=== PATIENT | male | born 1970 | race Caucasian/White ===

== ENCOUNTER 2018-08-15 20:50 | Observation (INO) | payer OTHER, SELFPAY ==
[2018-08-15 20:57] VITALS: BP 195/92; PULSE 74; RESP 22; TEMP 36.6; O2SAT 99
--- NOTE | 2018-08-15 21:09 | ED.CHESTPAIN ---
HPI - Chest Pain General Chief Complaint: Chest Pain Stated Complaint: POSSIBLE FB IN ESOPHAGUS Time Seen by Provider: 08/15/18 20:59 Source: patient and family Mode of arrival: ambulatory Limitations: no limitations History of Present Illness HPI narrative: 48-year-old male nonsmoker otherwise healthy presents with his friend and the chief complaint of a large chunk of steak stuck in his throat. He was eating a ribeye steak at 1430 this afternoon and has felt like it has been stuck ever since. He has had multiple episodes of vomiting. He denies chest pain shortness of breath or fever or chills. He states this has never happened before. He denies any sharp or metallic foreign body Onset (ago): hour(s) Duration: constant Pain location: epigastric Associated symptoms: vomiting Related Data Allergies Allergy/AdvReac Type Severity Reaction Status Date / Time Penicillins Allergy Verified 08/15/18 20:57 Review of Systems Constitutional Denies chills, Denies fever(s), Denies lethargy and Denies weakness Eyes Denies change in vision, Denies eye discharge, Denies irritation and Denies loss of vision ENT Ears, Nose, Mouth, and Throat: Denies change in voice, Denies neck pain and Denies sore throat Cardiovascular Denies chest pain, Denies irregular heart rhythm, Denies lightheadedness, Denies palpitations, Denies dyspnea, Denies dyspnea on exertion and Denies orthopnea Respiratory Denies cough, Denies dyspnea, Denies dyspnea on exertion and Denies wheezing Gastrointestinal Gastrointestinal: Denies abdominal pain, Denies change in bowel habits, Denies diarrhea, Denies nausea and Reports vomiting Genitourinary Denies hematuria, Denies flank pain, Denies urinary incontinence and Denies urinary urgency Musculoskeletal Denies neck pain Integumentary/Breasts Denies pruritus, Denies erythema, Denies rash and Denies wounds Neurologic Denies confusion, Denies loss of vision and Denies weakness Psychiatric Denies anxiety, Denies confusion, Denies depression, Denies homicidal ideation and Denies suicidal ideation Endocrine Denies palpitations Hematologic/Lymphatic Denies easy bruising Allergic/Immunologic Denies wheezing PFSH Social History Smoking Status: Never smoker Social History household members: spouse Smoking Status: Never smoker Exam Narrative Exam Narrative: GEN: AOx3 and in mild distress, actively vomiting ENT: no obvious FB intraorally. Airway patent EYES: Pupils are equal, round, and reactive to light and accommodation. Extraoccular muscles are intact bilaterally. There is no subconjunctival hemorrhage or exudate. CHEST: Lungs are clear to auscultation bilaterally and free of wheezes, rales, or rhonchi. Heart rate is regular rhythm, there are no murmurs, clicks, rubs, or gallops. There is no chest wall tenderness. ABD: Abdomen is soft and nontender. There is no guarding or rebound. Bowel sounds are normal in all 4 quadrants. There is no mass or organomegaly. EXT: Full painless ROM of all extremities with no loss of sensation or strength. SKIN: Warm, pink, and dry. No erythema or rash Initial Vital Signs Initial Vital Signs: Vital Signs Temperature 97.9 F 08/15/18 20:57 Pulse Rate 74 08/15/18 20:57 Respiratory Rate 22 08/15/18 20:57 Blood Pressure 195/92 H 08/15/18 20:57 Pulse Oximetry 99 08/15/18 20:57 Course Orders Ordered: ED Orders 08/15/18 21:10 XR soft tissue neck Stat Discontinued Medications Fentanyl (Sublimaze) 25 mcg IV Q5MIN PRN PRN Reason: Pain, Mild (1-3) Fentanyl (Sublimaze) 50 mcg IV Q5MIN PRN PRN Reason: Pain, Moderate (4-6) Glucagon (Glucagen) 1 mg IV NOW ONE Stop: 08/15/18 21:11 Last Admin: 08/15/18 22:10 Dose: 1 mg Lactated Ringer's (Lactated Ringers) 1,000 mls @ 42 mls/hr IV CONT AMAYA Last Infusion: 08/16/18 02:24 Dose: 0 mls/hr Admin: 08/16/18 00:10 Dose: 42 mls/hr Meperidine HCl (Demerol) 25 mg IV Q5MIN PRN PRN Reason: Pain or shivering Meperidine HCl (Demerol) 25 mg IV NOW ONE Stop: 08/16/18 02:00 Last Admin: 08/16/18 02:02 Dose: 25 mg Oxycodone/Acetaminophen (Percocet 5/325) 1 tab PO Q30MIN PRN PRN Reason: Mild or moderate pain Reevaluation(s) Reevaluation #1: patient given glucagon followed by luke warm soda and he had multiple more episodes of vomiting without obvious clearance of FB Consultations Consultation #1: call to Dr. Tran whom will come see patient, he asks that we contact OR crew Vital Signs - 8 hr 08/15/18 20:57 08/15/18 22:14 08/16/18 00:08 Temperature 97.9 F 100.5 F H Pulse Rate 74 83 103 H Respiratory Rate 22 16 Blood Pressure 195/92 H 176/85 H Blood Pressure [Right Arm] 189/95 H Pulse Oximetry 99 97 100 08/16/18 00:12 08/16/18 01:37 08/16/18 01:42 Temperature 100.5 F H 98.5 F Pulse Rate 86 88 77 Respiratory Rate 22 16 16 Blood Pressure 176/85 H 153/85 H 152/86 H Blood Pressure [Right Arm] Pulse Oximetry 100 96 98 08/16/18 01:48 08/16/18 02:13 08/16/18 02:29 Temperature 99.5 F 99.6 F Pulse Rate 84 94 H 78 Respiratory Rate 15 16 16 Blood Pressure 143/86 H 144/83 H Blood Pressure [Right Arm] Pulse Oximetry 97 98 98 Discharge Plan Departure Patient Disposition: Admitted as Observation Clinical Impression: Esophageal foreign body Qualifiers: Encounter type: initial encounter Qualified Code(s): T18.108A - Unspecified foreign body in esophagus causing other injury, initial encounter Discharge Date/Time: 08/16/18 00:05 Interventions: ED Discharge Assessment Last Done: 08/16/18 00:05 Admit Date/Time: 08/16/18 00:03 Admit Provider: Carlos Tran
--- NOTE | 2018-08-15 21:10 | DI.RAD.S_ITS ---
PROCEDURE: XR SOFT TISSUE NECK INDICATIONS: possible FB TECHNIQUE: 2 views of the neck were acquired. COMPARISON: None. FINDINGS: Airway: The airway appears patent. Soft tissues: Prevertebral soft tissues are normal in thickness. The epiglottis and aryepiglottic folds appear normal. No soft tissue gas. Bones: No suspicious bony lesions. Visualized cervical spine is normally aligned. IMPRESSION: A foreign body is not seen. Endoscopy may become necessary depending on the clinical status. Dictated by: David Zambrano M.D. on 08/16/2018 at 8:13 Approved by: David Zambrano M.D. on 08/16/2018 at 8:14
[2018-08-15] MEDS: GLUCAGON,HUMAN RECOMBINANT 1 MG/ML VIAL IV (22:10)
[2018-08-15 22:14] VITALS: BP 189/95; PULSE 83; O2SAT 97
[2018-08-16] VITALS (7 sets, daily range): BP systolic 143–176; BP diastolic 83–86; PULSE 77–103; RESP 15–22; TEMP 36.9–38.1; O2SAT 96–100; BMI 29.7
--- NOTE | 2018-08-16 00:07 | PM.HP.1 ---
History of Present Illness Date Patient Seen: 08/16/18 Time Patient Seen: 00:08 Chief complaint: POSSIBLE FB IN ESOPHAGUS Narrative: 48-year-old white male patient ingested a bolus of meat 230 in the afternoon boluses been stuck in his esophagus for the last 10 hours. A comes emergency room 2 hours ago and has received glucagon and various fluids and the and is unable to swallow any liquids he has no chest pain chest x-ray shows no perforation or evidence of new pneumomediastinum. Patient History Social History Smoking Status: Never smoker Family & Social History Safety & Behavioral: Feels Safe in Current Yes Environment Been Physically Hurt or No Threatened By a Person Tobacco & Substance use: Smoking Status Never smoker alcohol intake frequency holiday/special occasion Substance Use Type does not use Meds Allergies Allergy/AdvReac Type Severity Reaction Status Date / Time Penicillins Allergy Verified 08/15/18 20:57 Review of Systems Review of Systems All systems reviewed & are unremarkable except as noted in HPI and below Exam Vital Signs (past 8 hours): - 08/15/18 20:57 08/15/18 22:14 Temperature 97.9 F Pulse Rate 74 83 Respiratory Rate 22 Blood Pressure 195/92 H Blood Pressure [Right Arm] 189/95 H Pulse Oximetry 99 97 Oxygen Delivery Method Room Air Narrative Exam Narrative: The patient is alert and oriented in no pain Lungs are clear with no rales or wheezes there is no subcutaneous emphysema Heart regular rhythm no murmur Abdomen soft nontender no masses. Assessment & Plan Assessment & Plan narrative: Patient has a meat foreign body bolus in the esophagus. I have explained this to the patient and explained to the patient clearly that extracting a foreign body from the esophagus can be very hazardous and can result in perforation of the esophagus requiring major surgery. He understands and agrees to anesthesia with endoscopic foreign body removal of this meat bolus from his esophagus. Patient has no history of heartburn or hiatal hernia that is known but I have explained to the patient that he could have a tumor or a stricture which cause this meat impaction. He understands and agrees with no further questions
[2018-08-16] MEDS: LACTATED RINGERS 1,000 ML 42 ML IV (00:10)
--- NOTE | 2018-08-16 01:33 | P.OP.ENDO_ITS ---
Operative Date/Time/Diagnoses Date of procedure: 08/16/18 Time of procedure: 01:29 Pre-op diagnosis: Food bolus foreign body impaction in distal esophagus Post-op diagnosis: same Procedure & Clinicians Study performed: Esophagogastroscopy with extraction of foreign body of the distal esophagus Same procedure as scheduled: Yes Indications: Foreign body lodged in the distal esophagus for 10 hours. Surgeon: Carlos Tran Procedure Notes SCOAP/Timeout: Was done Procedure in detail: Under general endotracheal anesthesia with the patient in the supine position he was properly identified during surgical pause the flexibl e fiberoptic gastroscope inserted transorally from the hypopharynx under direct vision into the distal esophagus where there was a very large meat impaction lodged at the EG junction. Repeated extraction with forceps was required to remove majority of the bolus. I did try to gently advance a bit it would not move. After removing most of the material I was able to advance the final portion of the food bolus into his stomach. I examined the stomach which appeared normal. I retroflexed the endoscope to examine the esophageal gastric junction from the gastric side and it appeared to be intact. There was a small amount of oozing but no significant bleeding. Certainly no sign of any perforation. I examined the esophageal side of the EG junction very carefully upon completion of the procedure and he had is intact. There was no sign of tumor. Patient does have some esophagitis likely related to the impaction which was ongoing for over 10 hours. He tolerated the procedure well with great care to protect his airway with a cuffed endotracheal tube throughout. Scope withdrawal time: one hour Specimen(s): none sent Complications: none Follow up: as needed
[2018-08-16] MEDS: MEPERIDINE 100 MG/ML INJ 25 MG IV (02:02)
--- NOTE | 2018-08-16 02:17 | SUR.PHASEII ---
Friend brought in, d/c instructions discussed, both voiced an understanding. Demerol given for shakes, shakes stopped after med given.
--- NOTE | 2018-08-16 02:34 | SUR.PHASEII ---
Pt ready to go, dressed and left in stable condition, swallow intact, speech strong and denied pain.
== END 2018-08-16 02:36 | disposition home or self-care (01) ==
LOC: ED 23:30 → AC 08-16 00:03
PROVIDERS: Admitting Provider Surgery; Emergency Provider Emergency Medicine; Visit Provider Surgery
PROC: 0DJ08ZZ Inspection of Upper Intestinal Tract, Via Natural or Artificial Opening Endoscopic (ICD-10-PCS; CPT 43235; principal; 2018-08-15 23:55)
DX: T18.128A Food in esophagus causing other injury, initial encounter (principal)
CPT/HCPCS: 43247; 70360; 96374; 99282; 99284; G0378; J0330; J1610; J2175; J2405; J2704; J2765; J3010